=== PATIENT | male | born 1955 | race Caucasian/White ===

== ENCOUNTER → 2016-08-19 | Outpatient (REF) | payer SELFPAY ==
[2016-08-19 17:45] LABS: ANION GAP 8 MEQ/L (8-16); BLOOD UREA NITROGEN 18 MG/DL (7-18); CALCIUM LEVEL 8.9 MG/DL (8.8-10.2); CARBON DIOXIDE LEVEL 26 MEQ/L (21-32); CHLORIDE LEVEL 106 MEQ/L (98-107); CREATININE FOR GFR 0.91 MG/DL (0.70-1.30); GLOMERULAR FILTRATION RATE > 60.0 (>49); GLUCOSE, FASTING 108 MG/DL (80-110); POTASSIUM SERUM 4.3 MEQ/L (3.5-5.1); SODIUM LEVEL 140 MEQ/L (136-145)
[2016-08-19 17:55] LABS: BASO % 0.4 % (0.0-1.0); EOS # 0.2 K/mm3 (0.0-0.50); EOS % 3.3 % (0.0-3.0); LARGE UNSTAINED CELL # 0.1 K/mm3 (0.0-0.4); LARGE UNSTAINED CELL % 1.8 % (0.0-4.0); LYMPH # 1.2 K/mm3 (1.5-4.5); LYMPH % 24.5 % (24.0-44.0); MEAN CORPUSCULAR HEMOGLOBIN 29.6 pg (27.0-33.0); MEAN CORPUSCULAR HGB CONC 34.6 g/dl (32.0-36.5); MEAN CORPUSCULAR VOLUME 85.7 fl (80.0-96.0); MONO # 0.4 K/mm3 (0.0-0.8); MONO % 7.5 % (0.0-5.0); NEUTROPHILS # 2.9 K/mm3 (1.8-7.7); NEUTROPHILS % 62.5 % (36.0-66.0); PLATELET COUNT, AUTOMATED 240 k/mm3 (150-450); RED CELL DISTRIBUTION WIDTH 12.1 % (11.5-14.5); WHITE BLOOD COUNT 4.7 K/mm3 (4.0-10.0)
== END ==
LOC: M LAB REF 16:14
PROVIDERS: ATTEND Physician Assistant
DX: J18.9 Pneumonia, unspecified organism (principal)

== ENCOUNTER → 2016-09-18 | Outpatient (REF) | payer OTHER | LOC: M SFHCLERA 08:36 | PROVIDERS: ATTEND Family Medicine | DX: Z13.1 Encounter for screening for diabetes mellitus (principal); Z13.220 Encounter for screening for lipoid disorders; Z53.9 Procedure and treatment not carried out, unspecified reason ==

== ENCOUNTER → 2016-09-19 | Outpatient (REF) | payer OTHER | LOC: M SFHCLERA 08:42 | PROVIDERS: ATTEND Family Medicine | DX: Z13.1 Encounter for screening for diabetes mellitus (principal); Z13.220 Encounter for screening for lipoid disorders ==

== ENCOUNTER → 2017-05-05 | Outpatient (REF) | payer OTHER | LOC: M SFHCLERA 08:25 | PROVIDERS: ATTEND Family Medicine | DX: R73.01 Impaired fasting glucose (principal) ==

== ENCOUNTER → 2018-07-09 | Outpatient (REF) | payer MEDICARE ==
[2018-07-09 12:40] LABS: BLOOD UREA NITROGEN 28 MG/DL (7-18); CALCIUM LEVEL 8.7 MG/DL (8.8-10.2); CARBON DIOXIDE LEVEL 26 MEQ/L (21-32); CHLORIDE LEVEL 105 MEQ/L (98-107); CHOLESTEROL LEVEL 124 MG/DL (<200); CHOLESTEROL RISK RATIO 4.133 (<5); CREATININE FOR GFR 1.11 MG/DL (0.70-1.30); GLOMERULAR FILTRATION RATE > 60.0 (>49); GLUCOSE, FASTING 93 MG/DL (70-100); HDL CHOLESTEROL 30 MG/DL (>40); LDL CHOLESTEROL 73 MG/DL (<100); NON-HDL-C 94 MG/DL; POTASSIUM SERUM 4.8 MEQ/L (3.5-5.1); SODIUM LEVEL 139 MEQ/L (136-145); TRIGLYCERIDES LEVEL 106 MG/DL (<150)
[2018-07-09 13:38] LABS: HEMOGLOBIN A1c 6.2 %
== END ==
LOC: M SFHCLERA 08:45
PROVIDERS: ATTEND Family Medicine
DX: R73.03 Prediabetes (principal); E78.5 Hyperlipidemia, unspecified

== ENCOUNTER → 2018-07-14 | Outpatient (CLI) | payer MEDICARE ==
--- NOTE | 2018-07-14 10:39 | REP ---
ULTRASOUND ABDOMINAL AORTA: Real-time sonographic evaluation of the abdominal aorta performed. There is mild aneurysmal dilatation of the distal abdominal aorta 3.2 cm in maximum AP dimension extending for a length of about 4 cm. More proximally the abdominal aorta is not significantly dilated with slight ectasia at the level of the renal arteries 2.9 cm in AP dimension. More proximally AP diameter is 2.5 cm. Common iliac arteries are not significantly dilated, right measuring 1.2 cm and left 1.1 cm in maximum AP dimension. There is atherosclerotic plaquing of the abdominal aorta. IMPRESSION: Slight aneurysmal dilatation of the distal abdominal aorta 3.2 cm in maximum AP dimension extending for a length of 4 cm. Electronically Signed by John Aguayo MD 07/14/2018 08:33 P
== END ==
LOC: M RAD 07:18
PROVIDERS: ATTEND Family Medicine
DX: I77.811 Abdominal aortic ectasia (principal); F17.200 Nicotine dependence, unspecified, uncomplicated

== ENCOUNTER → 2018-07-22 | Outpatient (CLI) | payer MEDICARE ==
--- NOTE | 2018-07-22 09:36 | REP ---
Low-dose lung screening chest CT: There are no comparison studies. The study is performed without IV contrast. The images are presented at lung windowing only. There are the following lung nodules: Image 39, anterior inferior right upper lobe, 4 mm. Half image 57, right middle lobe, 8 mm. Image 58, anterior segment of the left lower lobe, 7 mm. Image 84, deep inferolateral sulcus left lung, 11 mm. Impression: The largest lung nodule measures 11 mm. This is a category 4A lesion. The probability of malignancy is 5 - 15%. 3-month follow-up low-dose lung screening CT is recommended. Additionally, consideration might be given to a PET scan. Electronically Signed by John Caicedo MD 07/22/2018 09:27 A
== END ==
LOC: M RAD 07:50
PROVIDERS: ATTEND Family Medicine
DX: Z13.6 Encounter for screening for cardiovascular disorders (principal); F17.200 Nicotine dependence, unspecified, uncomplicated; R91.8 Other nonspecific abnormal finding of lung field

== ENCOUNTER → 2018-08-17 | Outpatient (CLI) | payer MEDICARE ==
--- NOTE | 2018-08-17 17:11 | REP ---
BILATERAL LOWER EXTREMITY DUPLEX DOPPLER ARTERIAL ULTRASOUND: Real-time ultrasound evaluation and duplex Doppler interrogation of bilateral lower extremity arterial system is performed. Mild scattered plaquing is seen bilaterally throughout the lower extremities. No definite significant stenosis is seen bilaterally. KISHORE on the right is 1.1 and left 0.8. Triphasic and biphasic wave forms are seen diffusely bilaterally. There is monophasic wave forms in the left profunda and distal anterior tibial artery. RIGHT LEFT Common femoral artery 91.7 cm/s 56.3 cm/s Profunda 105.7 cm/s 69.2 cm/s SFA 132 cm/s 72 cm/s Popliteal 60.9 cm/s 45.2 cm/s Proximal KETTY 34.8 cm/s 35.7 cm/s Tibioperoneal trunk 37.7 cm/s 37.0 cm/s Proximal PRINTING MACHINE OPERATOR 46.0 cm/s 25.3 cm/s Distal PRINTING MACHINE OPERATOR 61 cm/s 22.3 cm/s Distal KETTY 38.8 cm/s 19.4 cm/s IMPRESSION: Mild scattered plaquing and narrowing bilaterally. No definite significant stenosis identified with duplex Doppler evaluation. Electronically Signed by John Aguayo MD 08/18/2018 03:18 P
== END ==
LOC: M RAD 08:46
PROVIDERS: ATTEND Surgery Vascular Surgery
DX: I70.213 Atherosclerosis of native arteries of extremities with intermittent claudication, bilateral legs (principal)

== ENCOUNTER → 2018-10-29 | Outpatient (CLI) | payer MEDICARE ==
--- NOTE | 2018-10-29 11:18 | REP ---
LUMBAR SPINE SERIES: Five views. HISTORY: Bilateral low back pain with left-sided sciatica. No comparison study. FINDINGS: Lumbar vertebral body heights are preserved. Alignment is normal. There is no evidence of spondylolysis or spondylolisthesis. There is evidence of a infrarenal abdominal aortic aneurysm measuring 4.6 cm in AP dimension on lateral radiograph. There are degenerative disc changes at each level in the lumbar spine most pronounced at L4-5 and L2-3. There is osteoarthritic facet hypertrophy bilaterally at L5-S1, L4-5 and to some degree L3-4. Psoas margins are symmetric. Sacrum and SI joints are intact. IMPRESSION: Degenerative spondylosis changes with degenerative disc disease most pronounced at L4-5 and L2-3 . There is a distal abdominal aortic aneurysm. This measures 4.6 cm in AP dimension on the lateral radiograph. This measurement will include approximate 20% to 25% magnification. Electronically Signed by Garo Zhang MD 10/29/2018 03:30 P
== END ==
LOC: M LRY 09:19
PROVIDERS: ATTEND Family Medicine
DX: M47.896 Other spondylosis, lumbar region (principal); M54.42 Lumbago with sciatica, left side

== ENCOUNTER → 2018-11-10 | Outpatient (CLI) | payer MEDICARE ==
--- NOTE | 2018-11-10 09:10 | REP ---
Clinical: Follow-up pulmonary nodule. Comparison: 07/22/2018. Technique: Axial noncontrast images from the thoracic inlet to the upper abdomen with coronal and sagittal re-formations. Findings: 4 mm density in the anterior right upper lobe (image 41), 7 mm density in the right middle lobe (image 59), and 5 mm density inseparable from the left major fissure (image 57) remains stable. No new consolidation, significant nodule or mass lesion appreciated. No pleural effusion. No pneumothorax. Tracheobronchial tree is patent. Stable lymph nodes measure up to 11 mm in the precarinal space. Atherosclerotic changes to the thoracic aorta and coronary arteries noted without aortic aneurysm, dissection or cardiomegaly. No pericardial effusion. Musculoskeletal structures intact. Limited upper abdomen demonstrates atrophic calcified right adrenal gland and normal left adrenal gland. Impression: Stable pulmonary densities unchanged from 07/22/2018. 12-month follow-up examination may be warranted to confirm stability. Electronically Signed by Solo Butler MD 11/10/2018 09:02 A
== END ==
LOC: M RAD 08:08
PROVIDERS: ATTEND Family Medicine
DX: R91.8 Other nonspecific abnormal finding of lung field (principal)

== ENCOUNTER → 2019-02-25 | Outpatient (CLI) | payer MEDICARE ==
--- NOTE | 2019-02-25 11:02 | REP ---
Bilateral lower extremity arterial Doppler ultrasound: History: Claudication. Atherosclerosis. Findings: Ankle brachial indices are 0.7 on the right and 0.6 on the left. These are lower than those observed August 17, 2018. Mild plaquing is observed bilaterally. Monophasic arterial wave forms are seen throughout the left lower extremity. Question inflow stenosis on the left. Right lower extremity arterial Doppler velocity chart: CF A 103 cm/S Profunda 76 Proximal SFA 91 Mid SFA 73 Distal SFA 86 Popliteal 66 Proximal AT A 28 Tibioperoneal trunk 37 Proximal NURSE OBGYN 39 Distal NURSE OBGYN 75 Distal AT A 49 Left lower extremity arterial Doppler velocity chart: CF A 57 cm/S Profunda 41 Proximal SFA 48 Mid SFA 38 Distal SFA 51 Popliteal 35 Proximal AT A 10 Tibioperoneal trunk 17 Proximal NURSE OBGYN 19 Distal NURSE OBGYN 19 Distal AT A 10 Electronically Signed by Garo Zhang MD 02/25/2019 10:54 A
== END ==
LOC: M RAD 08:28
PROVIDERS: ATTEND Surgery Vascular Surgery
DX: I80.2 Phlebitis and thrombophlebitis of other and unspecified deep vessels of lower extremities (principal)

== ENCOUNTER → 2019-07-11 | Outpatient (CLI) | payer MEDICARE ==
--- NOTE | 2019-07-11 15:07 | REP ---
CAROTID ULTRASOUND: Real-time ultrasound evaluation and duplex Doppler interrogation of the extracranial carotid vasculature is performed. There is moderate partially calcified plaquing and narrowing in both carotid bulbs extending into the internal carotid arteries. There is no evidence of elevated peak systolic velocity bilaterally. Luminal narrowing is less than 50%. There is no duplex Doppler sonographic evidence of hemodynamically significant stenosis of either internal carotid artery. There is normal direction of flow in the right vertebral artery. Left vertebral artery is not visualized. RIGHT LEFT Peak systolic velocity ICA 70.0 cm/s 68.6 cm/s End diastolic velocity ICA 33.5 cm/s 24.9 cm/s Peak systolic velocity CCA 64.7 cm/s 68.6 cm/s Peak systolic velocity ECA 166.1 cm/s 57.2 cm/s ICA/CCA ratio 1.21 1.0 IMPRESSION: Moderate bilateral plaquing and narrowing without evidence of hemodynamically significant stenosis. Luminal narrowing less than 50%. Electronically Signed by John Aguayo MD 07/11/2019 05:59 P
--- NOTE | 2019-07-11 15:28 | REP ---
DUPLEX DOPPLER ULTRASOUND BILATERAL LOWER EXTREMITY ARTERIAL SYSTEMS: Real-time ultrasound evaluation and duplex Doppler interrogation of the bilateral lower extremity arterial systems performed. KISHORE right 1.3 and left 0.85. There appears to be high grade stenosis of the left common iliac artery with a peak systolic velocity of 440 cm/s, external iliac artery on the left has a peak systolic velocity of 49 cm/s with monophasic waveform. Slow velocities and monophasic waveforms are seen throughout the remaining left lower extremity. Right lower extremity demonstrates normal flow velocities with triphasic and biphasic waveforms diffusely. There is no evidence of hemodynamically significant stenosis of the right lower extremity arterial system. Right common iliac and external iliac arteries also demonstrate normal flow velocities. Moderate plaquing is seen at the right common femoral artery with more mild degree of plaquing distally. PEAK SYSTOLIC VELOCITY RIGHT LEFT Common femoral artery 132.0 cm/s 60.0 cm/s Profunda 73.0 56.0 SFA 115.0 58.0 Popliteal 50.0 34.0 Proximal anterior tibial artery 29.0 13.0 Tibioperoneal trunk 46.0 24.0 Proximal posterior tibial artery 60.0 17.0 Distal posterior tibial artery 66.0 18.0 Distal anterior tibial artery 34.0 14.0 IMPRESSION: Severe stenosis left common iliac artery. In the more distal left lower extremity arterial system there are diffusely monophasic waveforms with slow flow velocities. Right lower extremity demonstrates moderate plaquing of the right common femoral artery. There is no significant stenosis in the right lower extremity arterial system. Electronically Signed by John Aguayo MD 07/11/2019 05:59 P
== END ==
LOC: M RAD 12:36
PROVIDERS: ATTEND Physician Assistant
DX: I65.21 Occlusion and stenosis of right carotid artery (principal); I70.213 Atherosclerosis of native arteries of extremities with intermittent claudication, bilateral legs

== ENCOUNTER → 2019-07-18 | Outpatient (CLI) | payer MEDICARE ==
[2019-07-18 10:46] LABS: HEMATOCRIT 43.6 % (42.0-52.0); HEMOGLOBIN 14.4 g/dl (13.5-17.5); MEAN CORPUSCULAR HEMOGLOBIN 29.8 pg (27.0-33.0); MEAN CORPUSCULAR VOLUME 90.1 fl (80.0-96.0); PLATELET COUNT, AUTOMATED 263 10^3/uL (150-450); RED BLOOD COUNT 4.84 10^6/uL (4.30-6.10); WHITE BLOOD COUNT 8.7 10^3/uL (4.0-10.0)
[2019-07-18 11:07] LABS: CREATININE FOR GFR 1.31 MG/DL (0.70-1.30); GLOMERULAR FILTRATION RATE 58.3 (>49); POTASSIUM SERUM 4.9 MEQ/L (3.5-5.1)
== END ==
LOC: M LAB 09:50
PROVIDERS: ATTEND Physician Assistant
DX: Z01.818 Encounter for other preprocedural examination (principal)

== ENCOUNTER → 2019-07-29 | Outpatient (CLI) | payer MEDICARE ==
--- NOTE | 2019-07-29 08:44 | REP ---
ABDOMINAL AORTIC SONOGRAPHY: HISTORY: Follow up abdominal aortic aneurysm. Comparison aortic sonography July 14, 2018 showed a distal aortic aneurysm measuring 3.2 cm AP by 4.0 cm right to left. FINDINGS: On today's sonography abdominal aortic dimensions are 2.5 x 3.2 cm AP by transverse respectively at the diaphragmatic hiatus. At the level of the main renal arteries these dimensions are 2.7 x 2.6 cm. The distal aorta at the level of the aneurysm measures 3.7 x 3.8 cm and is felt to be essentially unchanged. Right and left common iliac arteries are normal measuring 1.2 and 0.9 cm in AP dimension respectively. The aneurysm is approximately 3.8 cm in length. It appears to arise over 5 cm distal to the main renal arteries. No periaortic fluid or mass. IMPRESSION: 3.7 x 3.8 cm infrarenal abdominal aortic aneurysm. Essentially unchanged from the prior study. Electronically Signed by Garo Zhang MD 07/29/2019 08:49 A
== END ==
LOC: M RAD 07:31
PROVIDERS: ATTEND Family Medicine
DX: I71.4 Abdominal aortic aneurysm, without rupture (principal)

== ENCOUNTER → 2019-08-09 | Outpatient (CLI) | payer MEDICARE ==
[~2019-08-09] MED LIST: ACET-683 PO; ASPI81TA26 PO; CITA20TA6 PO; CLOP75TA2 PO; HEPARIN 1,000 UNITS/ML 10ML VIAL (FOR RADIOLOGY& DIALYSIS ONLY)(J1644-10) As Ordered ONE; ISOVUE-300 61% 50ML VIAL (Q9967) As Ordered ONE; LIDOCAINE 1% MDV 20ML VIAL As Ordered ONE; MIDAZOLAM INJ 2 MG/2 ML VIAL (J2250) As Ordered ONE; SIMV20TA22 PO; TIZA4TAB4 PO; TRAZ-252 PO; fentaNYL 100 MCG/2 ML INJECTION (J3010) As Ordered ONE
--- NOTE | 2019-08-09 14:52 | ROOPDOC ---
[facility] Report Of Operation Report of Operation Error. YUAN VIDES MD Aug 09, 2019 14:52
--- NOTE | 2019-08-09 15:11 | ROOPDOC ---
[facility] Report Of Operation Report of Operation DATE OF PROCEDURE: 08/09/19 PREPROCEDURE DIAGNOSES: Atherosclerosis of the [place] vessels with lifestyle limiting claudication and severe pain left lower extremity POSTPROCEDURE DIAGNOSES: Same PROCEDURE: 1. Ultrasound-guided access bilateral common femoral arteries 2. Aortoiliofemoral arteriogram and selection of left common femoral artery and left lower extremity runoff 3. Predilation of common iliac arteries was 6 x 100 [place] balloons 4. Stenting right common iliac artery with 8 x 37 express balloon expandable stent, and extension into external iliac artery with 8 x 57 express balloon 5. Extending left common iliac artery with 8 x 57 express balloon expandable stent, and extension into external iliac artery with 7 x 57 express balloon postdilated with 8 mm balloon 6. Completion arteriograms 7. Mynx closure bilateral common femoral arteries SURGEON: Yuan Kimball MD ANESTHESIA: Local anesthesia 18 mL lidocaine. Moderate intravenous conscious sedation was supervised by Dr. Kimball. The patient was independently monitored by registered nurse assigned to the Department of radiology using automated blood pressure, EKG, and pulse oximetry. The detailed sedation record is permanently stored in the hospital information system. The following is a brief sedation record: Start time 13:45, stop time 14:40, heparin 5000 units IV, fentanyl 75 g IV, Versed 1.5 mg IV. INDICATION FOR PROCEDURE: This is a very pleasant 64-year-old gentleman with worsening lifestyle limiting claudication and pain and is progressing to rest pain in the left lower extremity. Risks benefits and alternatives to an arteriogram potential intervention were explained to the patient and he is agreeable to proceed. Informed consent was obtained. INTERPRETATION: 1. There is a small aneurysmal dilation of the distal aorta, heavily calcified. The bilateral common iliac arteries are extremely calcified, and stenotic diffusely. The hypogastric arteries are patent, but there is also stenosis in the external iliac arteries. On the left, the external iliac artery also has a dense plaque that is somewhat lifted proximally allowing contrast to track behind it. The distal external iliac arteries are patent and laid off into patent common femoral arteries and profundus. The left common femoral artery has runoffs are widely patent SFA that is mildly ectatic and calcified but otherwise no flow limitations are noted. The popliteal artery is also widely patent, and there is 3 vessel runoff to the foot. The distal tibials are calcified and a bit diminutive, especially anterior tibial artery, but they are patent. The best runoff is through the posterior tibial artery which supplies the main blood flow to the foot. 2. After post dilation of the iliac arteries, no extravasation was noted. 3. After balloon-expandable stents were placed in the common iliac extending through the external iliac arteries bilaterally, we preserved the up and over option for future intervention at the aortic bifurcation, but we do have widely patent flow through the common iliac arteries and external iliac arteries bilaterally with preserved flow through the hypogastric arteries. No extravasation or embolization or dissection are noted. REPORT OF OPERATION: The patient was brought to the angiographic suite in stable condition and placed supine on the fluoroscopic table. His bilateral groins were prepped and draped in a sterile fashion. A timeout was performed. Sedation was administered without complication. Local anesthesia was administered to skin and subcutaneous tissue over the right common femoral artery and a microneedle was used to access the artery under ultrasound guidance. A wire was passed through this access under fluoroscopic guidance the needle was removed and a 4 Micronesian micro-sheath was placed and flushed with saline. A Glidewire and on the flushed catheter were advanced in the distal aorta under fluoroscopic guidance in aortoiliofemoral arteriograms were performed. Please see interpretation above. It was challenging to get up and over the bifurcation due to heavy calcified plaque in both common iliac arteries, we were eventually able to navigate the Glidewire and catheter into the left common femoral artery and a left lower extremity arteriogram with runoff was performed. Please see interpretation above. Next we gained access in the left common femoral artery in the same fashion as we did on the right. A Glidewire was advanced aorta under fluoroscopic guidance. Both sheath was exchanged for 7 Micronesian sheath and flushed with saline. We then 6 x 100 [place] balloon to cross the common iliac arteries into the aorta and a three-minute inflation was performed to predilate the arteries for an expandable stent placement. Following this there was no extrava sation noted. We then advanced an 8 x 37 express stent on the right and an 8 x 57 express stent on the left and these were deployed simultaneously at the origin to the common iliac arteries but not up into the aorta in order that we might preserve her up and over access for future interventions. We then extended the stent on the right with an 8 x 57 express stent into the external iliac artery with a 1 cm overlap at the original stent. Following this, there is widely patent inflow through the right iliac system without dissection embolization for extravasation. On the left we extended into the external iliac with a 7 x 57 express stent and postdilated this with an 8 x 57 balloon. Following this there was widely patent flow through the left iliac system with no dissection embolization her extravasation noted. We then deployed Mynx closure devices when it is time in each groin with good hemostasis. Pressure was held and sterile dressings were applied. The patient was taken to recovery in stable condition. He tolerated the procedure and the sedation well. ESTIMATED BLOOD LOSS: Approximately 5 mL. COMPLICATIONS: None. PLAN: It is okay for the patient to resume his home diet medications. We will start him on a prescription of Plavix which she should start tomorrow. He should continue to take his aspirin as well. He will need to be on Plavix for 60 days postop placement. He should take it easy over the next 48 hours and no strenuous exercise. We'll see him back in clinic in a week to check his groins and his per fusion. The patient was extensively counseled about smoking cessation and how important this is for limb preservation long-term. We appreciate the opportunity to participate in the care of this patient. YUAN KIMBALL MD Aug 09, 2019 15:11
[2019-08-09 17:55] VITALS: BP 171/88
== END ==
LOC: M IRPRO 09:33
PROVIDERS: ATTEND Surgery Vascular Surgery
DX: I70.213 Atherosclerosis of native arteries of extremities with intermittent claudication, bilateral legs (principal); I70.222 Atherosclerosis of native arteries of extremities with rest pain, left leg
CPT/HCPCS: 37221; 37223; 75710; 99152; 99153; C1760; C1769; C1876; C1887; C1894; J1644; J2250; J3010; Q9967

== ENCOUNTER → 2019-08-24 | Outpatient (REF) | payer MEDICARE ==
[~2019-08-24] MED LIST changes: -HEPARIN 1,000 UNITS/ML 10ML VIAL (FOR RADIOLOGY& DIALYSIS ONLY)(J1644-10) As Ordered ONE; -ISOVUE-300 61% 50ML VIAL (Q9967) As Ordered ONE; -LIDOCAINE 1% MDV 20ML VIAL As Ordered ONE; -MIDAZOLAM INJ 2 MG/2 ML VIAL (J2250) As Ordered ONE; -fentaNYL 100 MCG/2 ML INJECTION (J3010) As Ordered ONE
[2019-08-24 11:45] LABS: CHOLESTEROL RISK RATIO 3.666 (<5)
[2019-08-24 12:01] LABS: HEMOGLOBIN A1c 6.2 %
== END ==
LOC: M SFHCLERA 08:27
PROVIDERS: ATTEND Family Medicine
DX: Z13.1 Encounter for screening for diabetes mellitus (principal); E78.5 Hyperlipidemia, unspecified; R73.09 Other abnormal glucose

== ENCOUNTER → 2019-09-12 | Outpatient (CLI) | payer MEDICARE ==
--- NOTE | 2019-09-12 10:53 | REP ---
BILATERAL LOWER EXTREMITY DUPLEX DOPPLER ARTERIAL ULTRASOUND: Real-time ultrasound evaluation and duplex Doppler interrogation of bilateral lower extremity arterial systems is performed. KISHORE right is 1.1 and left 1.0. Since the prior study of 07/11/2019, the patient has had placement of iliac stents. In the left lower extremity there are diffuse triphasic and biphasic waveforms, previously waveforms were monophasic. Improved flow velocities are seen bilaterally. Right lower extremity demonstrates triphasic and biphasic waveforms. Normal flow velocities and waveforms are seen in the bilateral iliac arteries. Peak systolic velocity abdominal aorta is 74.6 cm/s. Right Peak Left Peak Systolic Velocity Systolic velocity Common iliac artery 148.0 cm/s 91.3 cm/s External iliac artery 133.0 cm/s 120.9 cm/s Common femoral artery 144.1 cm/s 132.0 cm/s Profunda 130.4 cm/s 97.3 cm/s Proximal SFA 146.2 cm/s 125.2 cm/s Mid SFA 82.3 cm/s 75.5 cm/s Distal SFA 101.9 cm/s 95.8 cm/s Popliteal 71.7 cm/s 67.8 cm/s Proximal KETTY 47.5 cm/s 46.8 cm/s Tibioperoneal trunk 41.4 cm/s 51.1 cm/s Proximal CONCESSIONIST 52.4 cm/s 48.2 cm/s Distal CONCESSIONIST 66.9 cm/s 69.4 cm/s Distal KETTY 55.3 cm/s 60.6 cm/s Electronically Signed by John Aguayo MD 09/12/2019 11:57 A
== END ==
LOC: M RAD 07:34
PROVIDERS: ATTEND Physician Assistant
DX: I70.203 Unspecified atherosclerosis of native arteries of extremities, bilateral legs (principal)

== ENCOUNTER → 2020-02-03 | Outpatient (CLI) | payer MEDICARE ==
--- NOTE | 2020-02-09 09:08 | REP ---
CAROTID ULTRASOUND COMPARISON: 07/11/2019. TECHNIQUE: Real-time sonographic evaluation and duplex Doppler interrogation of the extracranial carotid vasculature is performed. FINDINGS: There is again moderate partially calcified plaquing in the carotid bulbs and internal carotid arteries. Normal flow velocities are seen bilaterally with no duplex Doppler sonographic evidence of hemodynamically significant stenosis of either internal carotid artery. There is normal direction of flow in the right vertebral artery. The left vertebral artery is not visualized once again. PEAK FLOW VELOCITY ANALYSIS RIGHT LEFT ICA PSV 61.9 cm/s 71.7 cm/s ICA EDV 24.1 cm/s 27.1 cm/s CCA PSV 61.1 cm/s 64.0 cm/s ECA PSV 208 cm/s 71 cm/s ICA/CCA RATIO 1.0 1.1 IMPRESSION: No change since prior study. Moderate plaquing bilateral carotid bulbs and internal carotid arteries with no evidence of hemodynamically significant stenosis. MTDD
== END ==
LOC: M RAD 09:26
PROVIDERS: ATTEND Physician Assistant
DX: I65.23 Occlusion and stenosis of bilateral carotid arteries (principal)

== ENCOUNTER → 2020-02-28 | Outpatient (CLI) | payer MEDICARE ==
--- NOTE | 2020-02-28 16:20 | REP ---
INDICATION: MULTI PULMONARY NODULES COMPARISON: 11/10/2018 TECHNIQUE: Axial noncontrast images from the thoracic inlet to the upper abdomen with coronal and sagittal reformations. This CT examination was performed using the following dose reduction techniques: Automated exposure control, adjustment of mA and/or kv according to the patient's size, and use of iterative reconstruction technique. FINDINGS: Lung nguyễn demonstrate early emphysematous changes and few stable calcified and noncalcified pulmonary nodules measuring up to approximately 5 mm including a right middle lobe peripheral nodule which previously measured roughly 7 mm and on current examination measures 5 mm (discrepancy may be secondary to technique). No acute consolidation, new suspicious nodule or mass lesion appreciated. No effusion. No pneumothorax. Tracheobronchial tree is patent. No significant adenopathy noted. Further evaluation of the mediastinum demonstrates stable atherosclerotic changes to the thoracic aorta and coronary arteries. No cardiomegaly or pericardial effusion. Thyroid gland is normal. Surrounding musculoskeletal structures are intact and without acute osseous abnormality. IMPRESSION: 1. Early emphysematous changes. 2. Few scattered stable nodules up to 5 mm unchanged compared to 2019. 3. No acute mediastinal or pleuroparenchymal process appreciated. <Electronically signed by Solo Butler > 02/28/20 [id number]
== END ==
LOC: M RAD 15:03
PROVIDERS: ATTEND Family Medicine
DX: R91.1 Solitary pulmonary nodule (principal)

== ENCOUNTER → 2020-02-29 | Outpatient (CLI) | payer MEDICARE ==
--- NOTE | 2020-02-29 11:34 | PFTRPT ---
Height: 67.00 Inches Weight: 180.00 Lbs BSA: 1.93 Diagnosis: J44.9 DATE: 02/29/2020 ORDERING PHYSICIAN: Dr. Radha Herndon Pre and post bronchodilator studies have excellent technical quality. Forced vital capacity is reduced. FEV1 is out of proportion, obstructive index is therefore reduced. Expiratory limit of the flow-volume loop does suggest flow rate limitation. Favorable bronchodilator response is identified. Total lung capacity is elevation. Residual volume is consistent with air trapping. Diffusing capacity is significantly reduced and is borderline for correcting for alveolar volume. No hemoglobin available for correction. Airway resistance mildly elevated with concomitant decreased airway conductance. IMPRESSION: At least mild obstructive ventilatory impairment with concomitant underlying air trapping. Mild diffusing capacity impairment. Please correlate clinically. MTDD
== END ==
LOC: M CARPUL 10:30
PROVIDERS: ATTEND Family Medicine
DX: J44.9 Chronic obstructive pulmonary disease, unspecified (principal)

== ENCOUNTER → 2020-03-15 | Outpatient (CLI) | payer MEDICARE ==
[2020-03-15 19:54] LABS: APPEARANCE, URINE CLEAR (CLEAR); BACTERIA, URINE AUTO NEGATIVE (NEGATIVE); BILIRUBIN, URINE AUTO NEGATIVE (NEGATIVE); BLOOD, URINE BLOOD NEGATIVE (NEGATIVE); COLOR, URINE YELLOW (YELLOW); GLUCOSE, URINE (UA) AUTO NEGATIVE (NEGATIVE); KETONE, URINE AUTO NEGATIVE (NEGATIVE); LEUKOCYTE ESTERASE, URINE AUTO NEGATIVE (NEGATIVE); MUCUS, URINE SMALL (NEGATIVE); NITRITE, URINE AUTO NEGATIVE (NEGATIVE); PROTEIN, URINE AUTO NEGATIVE (NEGATIVE); RBC, URINE AUTO 0 /HPF (0-3); SPECIFIC GRAVITY URINE AUTO 1.019 (1.002-1.035); SQUAMOUS EPITHELIAL CELL UR AU 0 /HPF (0-6); UROBILINOGEN, URINE AUTO 0.2 mg/dL (0.0-2.0); WBC, URINE AUTO 0 /HPF (0-3)
[2020-03-15 20:22] LABS: ALBUMIN 3.8 GM/DL (3.2-5.2); BILIRUBIN,TOTAL 0.2 MG/DL (0.2-1.0); CALCIUM LEVEL 8.7 MG/DL (8.8-10.2); CREATININE FOR GFR 1.54 MG/DL (0.70-1.30); FREE T4 1.11 NG/DL (0.76-1.46); GLOMERULAR FILTRATION RATE 48.4 (>49); POTASSIUM SERUM 4.4 MEQ/L (3.5-5.1); THYROID STIMULATING HORMONE 1.17 uIU/ML (0.358-3.740); TOTAL PROTEIN 6.4 GM/DL (6.4-8.2)
== END ==
LOC: M WUC 13:44
PROVIDERS: ATTEND Family Medicine
DX: I10 Essential (primary) hypertension (principal)

== ENCOUNTER → 2020-04-03 | Outpatient (CLI) | payer MEDICARE ==
--- NOTE | 2020-04-03 20:15 | REP ---
INDICATION: CLAUDICATION COMPARISON: 09/12/2019. TECHNIQUE: Real time aguayo scale and Duplex Doppler evaluation of the bilateral lower extremity arterial vasculature using linear high frequency transducer. FINDINGS: Aguayo scale and duplex doppler images demonstrate mild scattered plaquing diffusely bilaterally, without evidence of focal stenosis or evidence of arterial occlusion. Bilateral common iliac artery stents are patent. Diffuse triphasic and biphasic waveforms are seen bilaterally. KISHORE right 1.0 and left 0.98. Peak systolic velocities (cm/sec) Common iliac arteries: Right 119; left 146 External iliac arteries: Right 115; left 98 Common femoral artery: Right 114; Left 103 Profunda femoris: Right 116; Left 84 SFA (proximal): Right 122; Left 149 SFA (mid): Right 84; Left 83 SFA (distal): Right 71; Left 78 Popliteal artery: Right 82; Left 74 KETTY (prox.): Right 56; Left 48 Tibioperoneal trunk: Right 47; Left 48 BUSINESS DEVELOPMENT DIRECTOR (prox.): Right 51; Left 47 BUSINESS DEVELOPMENT DIRECTOR (distal): Right 90; Left 61 KETTY (distal): Right 75; Left 56 IMPRESSION: Mild scattered plaquing bilaterally but no evidence of focal occlusion or stenosis. Patent common iliac artery stents. <Electronically signed by John Aguayo > 04/03/202010
== END ==
LOC: M RAD 13:43
PROVIDERS: ATTEND Physician Assistant
DX: I70.203 Unspecified atherosclerosis of native arteries of extremities, bilateral legs (principal); Z95.828 Presence of other vascular implants and grafts

== ENCOUNTER → 2020-04-26 | Outpatient (CLI) | payer MEDICARE ==
--- NOTE | 2020-04-26 14:50 | REP ---
INDICATION: MEDIAL KNEE PAIN COMPARISON: None. TECHNIQUE: AP and lateral views left knee. FINDINGS: There is no evidence of acute fracture, dislocation, or intrinsic bone disease.I do not see significant arthritic change. There does appear to be a small joint effusion. There are mild vascular calcifications posteriorly. There is a tiny spur of the superior pole of the patella. IMPRESSION: No fracture or dislocation. Tiny spur superior pole of patella. Small joint effusion. <Electronically signed by John Aguayo > 04/26/20 [id number]
== END ==
LOC: M WUC 13:26
PROVIDERS: ATTEND Dermatology
DX: M25.462 Effusion, left knee (principal); M25.562 Pain in left knee

== ENCOUNTER 2020-05-07 11:24 | Emergency (ER) | payer MEDICARE ==
[~2020-05-07] VITALS: Ht 170.2 cm; Wt 82.8 kg
[2020-05-07] MEDS ORDERED: ASPI-1 PO (11:50)
[2020-05-07] MEDS ORDERED: AMLO1TAB24 (11:50)
[2020-05-07] MEDS ORDERED: SPIR1CAP (11:50)
[2020-05-07 13:07] LABS: BASO # 0.1 10^3/uL (0.0-0.2); BASO % 0.7 % (0.0-1.0); EOS # 0.3 10^3/uL (0.0-0.5); EOS % 4.5 % (0.0-3.0); HEMATOCRIT 41.2 % (42.0-52.0); HEMOGLOBIN 13.6 g/dl (13.5-17.5); LYMPH # 1.2 10^3/uL (1.5-5.0); LYMPH % 16.8 % (24.0-44.0); MEAN CORPUSCULAR HEMOGLOBIN 29.8 pg (27.0-33.0); MEAN CORPUSCULAR VOLUME 90.4 fl (80.0-96.0); MONO # 0.6 10^3/uL (0.0-0.8); MONO % 7.7 % (0.0-5.0); NEUTROPHILS # 5.1 10^3/uL (1.5-8.5); NEUTROPHILS % 69.3 % (36.0-66.0); PLATELET COUNT, AUTOMATED 267 10^3/uL (150-450); RED BLOOD COUNT 4.56 10^6/uL (4.30-6.10); WHITE BLOOD COUNT 7.4 10^3/uL (4.0-10.0)
[2020-05-07] MEDS ORDERED: ISOVUE-370 76% 100ML VIAL As Ordered ONE (13:10)
[2020-05-07 13:17] LABS: INR 0.96
[2020-05-07 13:18] LABS: PARTIAL THROMBOPLASTIN TIME 27.7 SECONDS (24.2-38.5)
--- NOTE | 2020-05-07 13:35 | REP ---
INDICATION: LLE pain; PVD; r/o clot COMPARISON: None. TECHNIQUE: Aguayo scale and color Doppler evaluation left lower extremity using linear high frequency transducer. FINDINGS: Ultrasound examination of the left lower extremity deep venous structures from the common femoral vein to the popliteal vein demonstrates normal compressibility flow and wave patterns in response to respiration and augmentation. There is no evidence for deep venous thrombosis. Complex Hollins's cyst in the popliteal fossa measuring 5.0 x 1.7 x 4.1 cm IMPRESSION: No evidence for deep venous thrombosis. Complex Hollins's cyst in the popliteal fossa. <Electronically signed by Solo Butler > 05/07/20 [id number]
--- NOTE | 2020-05-07 14:11 | REP ---
INDICATION: hx of pelvic arterial stents; LLE pain/cool. COMPARISON: Comparison sonography April 03, 2020.. TECHNIQUE: 100 mL of intravenous Isovue 370 is administered. Helical scanning is acquired and 3 mm axial images re-formatted. Coronal and sagittal MPR, coronal MIP, complex axis luminal MPR, and surface rendered 3D images are generated. FINDINGS: Nonvascular CT findings include sigmoid colon diverticulosis without CT evidence of diverticulitis, 3 tiny subcentimeter cysts in the hip liver parenchyma. Vascular findings. There is 50% stenosis at the origin of the celiac axis. The SMA is widely patent. The proximal 1.5 cm of inferior mesenteric artery is occluded. There is an infrarenal abdominal aortic aneurysm measuring 4.2 cm in greatest anteroposterior dimension. There are patent bilateral common iliac artery stents as seen by sonography. There is atherosclerotic plaquing and high-grade stenosis of the main renal artery on the right, proximally 85-90%. There is an accessory renal artery on the right to the upper pole which does not show stenosis. On the left there is an nonstenotic upper pole small are artery arising from the aorta. There is atherosclerotic plaquing and moderate 60-75% narrowing of the left main renal artery is observed. The left iliac stent extends into the external iliac artery segment. The external iliac arteries are patent. Common femoral artery show vascular calcification and some plaquing but no high-grade stenosis. Profundal and superficial femoral arteries are patent proximally. On the right there is some atherosclerotic plaquing in the distal superficial femoral artery in the adductor canal but no high-grade stenosis is seen. Popliteal artery is a good caliber on the right. There is mild plaquing at the tibial-peroneal trunk and its bifurcation. Three vessel calf runoff is seen on the right to the distal calf and the posterior tibial is seen patent across the ankle. On the left, there is atherosclerotic plaquing the along the mid superficial femoral artery. In the adductor canal there is plaquing but no high-grade stenosis is seen. Popliteal artery is a good caliber. There is tibial-peroneal trunk bifurcation plaque calcification but no high-grade stenosis. Three vessel calf runoff is seen to the distal calf on the left. Anterior and posterior tibial arteries are patent across the ankle. 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 Scattered calcific atherosclerotic plaquing most pronounced in the superficial femoral arteries and tibial-peroneal trunk bifurcations. Patent bilateral common iliac artery stents. No high-grade stenosis or occlusion in the runoff arteries in either leg. <Electronically signed by Jules Zhang > 05/07/20 [id number]
[2020-05-07 14:25] VITALS: BP 162/89
--- NOTE | 2020-05-08 07:33 | ED PDOC ---
Post-Departure Follow-Up radiology rpeort faxed to galina Herndon Sarah MD May 08, 2020 07:33
== END 2020-05-07 15:02 | disposition home or self-care (01) ==
LOC: M ED 11:24
DX: M71.22 Synovial cyst of popliteal space [Baker], left knee (principal); I70.213 Atherosclerosis of native arteries of extremities with intermittent claudication, bilateral legs; E78.5 Hyperlipidemia, unspecified; I25.10 Atherosclerotic heart disease of native coronary artery without angina pectoris; I10 Essential (primary) hypertension; Z95.5 Presence of coronary angioplasty implant and graft
CPT/HCPCS: 36415; 75635; 80047; 85025; 85610; 85730; 93971; 99284; Q9967

== ENCOUNTER → 2020-05-31 | Outpatient (CLI) | payer MEDICARE ==
[~2020-05-31] MED LIST changes: +AMLO1TAB24; +ASPI-1 PO; +SPIR1CAP
--- NOTE | 2020-05-31 08:59 | REP ---
INDICATION: RENAL DOPPLER. COMPARISON: CT angiography May 07, 2020.. TECHNIQUE: Urinary tract sonography and renal artery Doppler study. FINDINGS: Scanning at the level of the urinary bladder shows no abnormality. Renal cortical echogenicity pattern is normal bilaterally and contours are smooth. There is no evidence of hydronephrosis, cyst, mass, or calculus in either kidney. The right kidney measures 9.4 x 6.0 x 5.5 cm. Left renal dimensions are 12.3 x 5.3 x 5.5 cm. The right kidney is somewhat smaller than the left by ultrasound. Renal Doppler data: Peak systolic flow velocity in the abdominal aorta at the level of main renal arteries is normal measured at 61 centimeters/second. An accessory and main right renal artery are observed. The accessory renal artery noted on CT study on the left could not be seen. Peak systolic flow velocity in the right main renal artery is 174 centimeters/second in the main and 127 centimeters/second in the accessory renal artery. Renal to aortic flow velocity ratios slightly elevated at 2.85 in the main renal artery on the right. On the left, peak systolic flow velocity is 165 centimeters/second. Renal to aortic flow velocity ratio 2.7 which is slightly elevated. Resistive indices are decreased and acceleration times are increase in the upper mid and lower pole of the right kidney. Intralobar artery Doppler data on the left is normal. IMPRESSION: Right kidney somewhat smaller than the left and there is evidence of mild to moderate right renal artery stenosis in the main renal artery. The accessory on the left was not be seen. Mildly elevated systolic velocity left main renal artery is noted as consistent with some degree of left renal artery stenosis. <Electronically signed by Jules Zhang > 05/31/20 [id number]
== END ==
LOC: M RAD 07:07
PROVIDERS: ATTEND Physician Assistant
DX: I70.1 Atherosclerosis of renal artery (principal)

== ENCOUNTER → 2021-03-28 | Outpatient (CLI) | payer MEDICARE ==
--- NOTE | 2021-03-28 09:35 | REP ---
INDICATION: ATHEROSCLEROSIS, EMILY COMPARISON: Renal ultrasound dated 05/31/2020 TECHNIQUE: Real time foley scale ultrasound examination using curved array transducer followed by color Doppler evaluation of the renal vasculature. FINDINGS: The kidneys demonstrate chronic age-related changes including cortical thinning and increased central sinus fat along with asymmetric atrophy to the right kidney. No hydronephrosis, nephrolithiasis, cystic or renal mass lesion identified. Bladder is unremarkable. Right kidney measures 8.9 x 5.8 x 5.5 cm. Left kidney measures 11.6 x 5.2 x 5.5 cm. Color Doppler evaluation demonstrates duplicated bilateral renal arteries. Peak aortic velocity: 82.7 centimeters/second RIGHT KIDNEY Peak renal arterial velocity: 262.1 centimeters/second Renal-aortic ratio: 3.2 Intrarenal resistive indices: 0.48-0.49 Intrarenal acceleration times: 0.092-0.011 LEFT KIDNEY Peak renal arterial velocity: 154 centimeters/second Renal-aortic ratio: 1.9 Intrarenal resistive indices: 0.56-0.66 Intrarenal acceleration times: 0.047-0.053 IMPRESSION: 1. Kidneys demonstrate chronic age-related changes and right renal atrophy due to underlying stenosis at the origin of the right main renal artery. <Electronically signed by Solo Butler > 03/28/21 0916
--- NOTE | 2021-03-28 09:41 | REP ---
INDICATION: ATHEROSLCEROSIS, OCCLUSION/STENOSIS COMPARISON: 02/03/2020 TECHNIQUE: Aguayo scale and color Doppler evaluation using linear high frequency transducer Findings: FINDINGS: Two-dimensional aguayo scale and color images demonstrate normal moderate atheromatous plaquing. Color Doppler interrogation demonstrates normal arterial wave patterns and velocities through the carotid bulbs and internal carotid arteries. There is stable focal elevation to the right external carotid artery. Suspected occlusion to the left vertebral artery again noted and unchanged.. ICA peak systolic velocity: Right 105.1 cm/s; Left 100.7 cm/s ICA diastolic velocity: Right 40.7 cm/s; Left 38.5 cm/s ECA peak systolic velocity: Right 218.1 cm/s; Left 122.9 cm/s CCA peak systolic velocity: Right 91.7 cm/s; Left 107.4 cm/s ICA/CCA ratio: Right 1.15 cm/s; Left 0.94 cm/s IMPRESSION: 1. No hemodynamically significant areas of narrowing or stenosis of the internal carotid arteries appreciated. 2. Left vertebral artery occlusion and increased velocity through the right external carotid artery are again noted and unchanged as compared with prior examination of 2019. <Electronically signed by Solo Butler > 03/28/21 0937
--- NOTE | 2021-03-28 10:00 | REP ---
INDICATION: ATHEROSLCEROSIS, OCCLUSION/STENOSIS COMPARISON: None. TECHNIQUE: Real time aguayo scale and color Doppler evaluation of the bilateral lower extremity arterial vasculature using linear high frequency transducer. FINDINGS: Aguayo scale and color images demonstrate moderate amounts of bilateral atheromatous plaquing with areas of minimal narrowing but no focal stenosis or occlusion identified. Doppler interrogation demonstrates normal triphasic and biphasic arterial wave forms and velocities bilaterally. Incidental Hollins's cyst in the left popliteal fossa measures 35 x 8 x 12 mm. Right KISHORE: 1.16 Left KISHORE: 1.14 Peak systolic velocities (cm/sec) Common femoral artery: Right 103; Left 110 Profunda femoris: Right 111; Left 149 SFA (proximal): Right 136; Left 141 SFA (mid): Right 112; Left 83 SFA (distal): Right 110; Left 114 Popliteal artery: Right 84/87; Left 82/49 Tibioperoneal trunk: Right 32; Left 45 FURNITURE RESTORER (prox.): Right 69; Left 52 FURNITURE RESTORER (distal): Right 94; Left 65 Peroneal (prox.): Right 40; Left 37 Peroneal (distal): Right 40; Left 30 KETTY (prox.): Right 42; Left 42 KETTY (distal): Right 54; Left 43 IMPRESSION: Atheromatous changes with areas of narrowing but no obvious focal occlusion or stenosis. <Electronically signed by Solo Butler > 03/28/21 0992
== END ==
LOC: M RAD 07:04
PROVIDERS: ATTEND Surgery Vascular Surgery
DX: I65.23 Occlusion and stenosis of bilateral carotid arteries (principal); I70.203 Unspecified atherosclerosis of native arteries of extremities, bilateral legs; I70.1 Atherosclerosis of renal artery; R09.89 Other specified symptoms and signs involving the circulatory and respiratory systems

== ENCOUNTER → 2021-04-15 | Outpatient (CLI) | payer MEDICARE ==
[2021-04-15 18:12] LABS: BLOOD UREA NITROGEN 21 MG/DL (7-18); CREATININE FOR GFR 1.23 MG/DL (0.70-1.30); GLOMERULAR FILTRATION RATE > 60.0 (>49)
== END ==
LOC: M LAB 16:40
PROVIDERS: ATTEND Surgery Vascular Surgery
DX: Z01.818 Encounter for other preprocedural examination (principal)

== ENCOUNTER → 2021-04-17 | Outpatient (CLI) | payer MEDICARE ==
--- NOTE | 2021-04-17 09:19 | REP ---
INDICATION: AAA COMPARISON: CT dated 05/07/2020 TECHNIQUE: Real time foley scale ultrasound examination using curved array transducer. FINDINGS: Infrarenal partially thrombosed abdominal aortic aneurysm is again identified measuring roughly 4.4 x 4.6 cm diameter and 4.5 cm in craniocaudal length. Based on most recent CT, the aneurysm begins approximately 3 cm below the renal arteries and terminates before the bifurcation to iliac arteries. Internal patent lumen measures 3.0 x 2.8 cm. No periaortic fluid is identified.. Proximal aorta: 2.9 x 2.7 cm Aorta at renal arteries: 2.5 x 2.5 cm Mid aorta: 4.2 x 4.6 cm Distal aorta: 4.4 x 4.5 cm Right common iliac artery: 0.8 x 1.2 cm Left common iliac artery: 0.9 x 1.1 cm IMPRESSION: Known infrarenal abdominal aortic aneurysm similar to CT dated 05/07/2020. <Electronically signed by Solo Butler > 04/17/21 0915
== END ==
LOC: M RAD 08:23
PROVIDERS: ATTEND Surgery Vascular Surgery
DX: I71.4 Abdominal aortic aneurysm, without rupture (principal)

== ENCOUNTER → 2021-05-15 | Outpatient (CLI) | payer MEDICARE ==
--- NOTE | 2021-05-15 09:50 | REP ---
INDICATION: SOLITARY PULMONARY NODULE. COMPARISON: 02/28/2020 the latest prior a standard noncontrast helical CT TECHNIQUE: Axial noncontrast images from the thoracic inlet to the upper abdomen using low-dose lung screening technique (LDCT). As per the protocol only lung window images were sent to the read station for interpretation. FINDINGS: There are multiple pulmonary nodules which are stable. There are no new abnormal nodules, masses, or opacities. IMPRESSION: Stable CT examination of the chest. Follow-up as per the revised Fleischner society criteria. <Electronically signed by Santy Ricardo > 05/15/21 0913
== END ==
LOC: M RAD 09:11
PROVIDERS: ATTEND Student in an Organized Health Care Education/Training Program
DX: R91.1 Solitary pulmonary nodule (principal); Z12.5 Encounter for screening for malignant neoplasm of prostate; F17.218 Nicotine dependence, cigarettes, with other nicotine-induced disorders

== ENCOUNTER → 2021-06-11 | Outpatient (POV) | payer MEDICARE ==
[~2021-06-11] VITALS: Ht 170.2 cm; Wt 84.0 kg
[~2021-06-11] MED LIST changes: +ASPI81CH33 PO; +HYDR12CA PO; +TIZA10TA PO; -TIZA4TAB4 PO
[2021-06-11 10:25] VITALS: BP 161/85
== END ==
LOC: M IRPOV 10:19
PROVIDERS: ATTEND Radiology Diagnostic Radiology
DX: I70.1 Atherosclerosis of renal artery (principal); N28.89 Other specified disorders of kidney and ureter; F17.210 Nicotine dependence, cigarettes, uncomplicated; I10 Essential (primary) hypertension; I73.9 Peripheral vascular disease, unspecified; J44.9 Chronic obstructive pulmonary disease, unspecified; Z79.82 Long term (current) use of aspirin; Z79.899 Other long term (current) drug therapy

== ENCOUNTER → 2021-06-20 | Outpatient (CLI) | payer MEDICARE ==
[~2021-06-20] MED LIST changes: +ISOVUE-300 61% 50ML VIAL As Ordered ONE; +LIDOCAINE 1% MDV 20ML VIAL As Ordered ONE; +MIDAZOLAM INJ 2MG/2ML VIAL (J2250 PER 1MG) As Ordered ONE; +NS 1,000 ML IV SCH; +diphenhydrAMINE 50MG/ML VIAL (J1200) As Ordered ONE; +fentaNYL 100 MCG/2 ML INJECTION As Ordered ONE
[2021-06-20 16:15] VITALS: BP 138/82
== END ==
LOC: M IRPRO 06:39
PROVIDERS: ATTEND Radiology Diagnostic Radiology
DX: I10 Essential (primary) hypertension (principal); N28.9 Disorder of kidney and ureter, unspecified; I70.1 Atherosclerosis of renal artery; I71.4 Abdominal aortic aneurysm, without rupture; Z95.828 Presence of other vascular implants and grafts
CPT/HCPCS: 36254; 75831; 99152; 99153; C1769; C1887; C1894; J1644; J2250; J3010; Q9967

== ENCOUNTER → 2021-07-09 | Outpatient (POV) | payer MEDICARE ==
[~2021-07-09] VITALS: Ht 170.2 cm; Wt 84.1 kg
[~2021-07-09] MED LIST changes: -ISOVUE-300 61% 50ML VIAL As Ordered ONE; -LIDOCAINE 1% MDV 20ML VIAL As Ordered ONE; -MIDAZOLAM INJ 2MG/2ML VIAL (J2250 PER 1MG) As Ordered ONE; -NS 1,000 ML IV SCH; -diphenhydrAMINE 50MG/ML VIAL (J1200) As Ordered ONE; -fentaNYL 100 MCG/2 ML INJECTION As Ordered ONE
[2021-07-09 08:45] VITALS: BP 156/88
== END ==
LOC: M IRPOV 08:32
PROVIDERS: ATTEND Radiology Diagnostic Radiology
DX: I70.1 Atherosclerosis of renal artery (principal); I71.4 Abdominal aortic aneurysm, without rupture

== ENCOUNTER → 2021-07-18 | Outpatient (CLI) | payer MEDICARE ==
[~2021-07-18] MED LIST changes: +ISOVUE-300 61% 50ML VIAL As Ordered ONE; +LIDOCAINE 1% MDV 20ML VIAL As Ordered ONE; +MIDAZOLAM INJ 2MG/2ML VIAL (J2250 PER 1MG) As Ordered ONE; +NITROGLYCERIN IN D5W 25MG/250ML (100MCG/ML) As Ordered ONE; +NS 1,000 ML IV SCH; +VERAPAMIL 5MG/2ML VIAL As Ordered ONE; +diphenhydrAMINE 50MG/ML VIAL (J1200) As Ordered ONE; +fentaNYL 100 MCG/2 ML INJECTION As Ordered ONE
[2021-07-18 14:30] VITALS: BP 143/82
== END ==
LOC: M IRPRO 06:23
PROVIDERS: ATTEND Radiology Diagnostic Radiology
DX: I70.1 Atherosclerosis of renal artery (principal); I71.4 Abdominal aortic aneurysm, without rupture
CPT/HCPCS: 36251; 99152; 99153; C1769; C1876; C1887; C1894; J1200; J1644; J2250; J3010; Q9967

== ENCOUNTER → 2021-08-06 | Outpatient (POV) | payer MEDICARE ==
[~2021-08-06] VITALS: Ht 170.2 cm; Wt 81.8 kg
[~2021-08-06] MED LIST changes: -ISOVUE-300 61% 50ML VIAL As Ordered ONE; -LIDOCAINE 1% MDV 20ML VIAL As Ordered ONE; -MIDAZOLAM INJ 2MG/2ML VIAL (J2250 PER 1MG) As Ordered ONE; -NITROGLYCERIN IN D5W 25MG/250ML (100MCG/ML) As Ordered ONE; -NS 1,000 ML IV SCH; -VERAPAMIL 5MG/2ML VIAL As Ordered ONE; -diphenhydrAMINE 50MG/ML VIAL (J1200) As Ordered ONE; -fentaNYL 100 MCG/2 ML INJECTION As Ordered ONE
[2021-08-06 11:10] VITALS: BP 140/82
== END ==
LOC: M IRPOV 11:02
PROVIDERS: ATTEND Radiology Diagnostic Radiology
DX: I71.4 Abdominal aortic aneurysm, without rupture (principal); I10 Essential (primary) hypertension

== ENCOUNTER → 2021-11-07 | Outpatient (CLI) | payer MEDICARE ==
[2021-11-07 13:25] LABS: BASO # 0.1 10^3/uL (0.0-0.2); BASO % 1.1 % (0.0-1.0); EOS # 0.3 10^3/uL (0.0-0.5); EOS % 3.9 % (0.0-3.0); HEMATOCRIT 42.5 % (42.0-52.0); HEMOGLOBIN 14.3 g/dl (13.5-17.5); LYMPH # 1.2 10^3/uL (1.5-5.0); LYMPH % 18.1 % (24.0-44.0); MEAN CORPUSCULAR HEMOGLOBIN 29.2 pg (27.0-33.0); MEAN CORPUSCULAR HGB CONC 33.6 g/dl (32.0-36.5); MEAN CORPUSCULAR VOLUME 86.9 fl (80.0-96.0); MONO # 0.7 10^3/uL (0.0-0.8); MONO % 10.4 % (2.0-8.0); NEUTROPHILS # 4.3 10^3/uL (1.5-8.5); NEUTROPHILS % 65.7 % (36.0-66.0); PLATELET COUNT, AUTOMATED 266 10^3/uL (150-450); RED BLOOD COUNT 4.89 10^6/uL (4.30-6.10); WHITE BLOOD COUNT 6.5 10^3/uL (4.0-10.0)
[2021-11-07 13:35] LABS: INR 0.93; PARTIAL THROMBOPLASTIN TIME 32.5 SECONDS (25.9-37.0); PROTHROMBIN TIME 12.9 SECONDS (12.7-14.5)
[2021-11-07 13:45] LABS: CALCIUM LEVEL 9.1 MG/DL (8.8-10.2); CREATININE FOR GFR 1.44 MG/DL (0.70-1.30); GLOMERULAR FILTRATION RATE 51.9 (>49); POTASSIUM SERUM 4.1 MEQ/L (3.5-5.1)
== END ==
LOC: M WUC 09:48
PROVIDERS: ATTEND Surgery Vascular Surgery
DX: Z01.818 Encounter for other preprocedural examination (principal); D69.8 Other specified hemorrhagic conditions

== ENCOUNTER → 2021-11-08 | Outpatient (CLI) | payer MEDICARE | LOC: M RAD 09:09 | PROVIDERS: ATTEND Student in an Organized Health Care Education/Training Program | DX: I71.4 Abdominal aortic aneurysm, without rupture (principal) ==

== ENCOUNTER → 2022-07-15 | Outpatient (CLI) | payer MEDICARE | LOC: M RAD 13:33 | PROVIDERS: ATTEND Student in an Organized Health Care Education/Training Program | DX: Z12.2 Encounter for screening for malignant neoplasm of respiratory organs (principal); F17.210 Nicotine dependence, cigarettes, uncomplicated; R91.8 Other nonspecific abnormal finding of lung field ==

== ENCOUNTER → 2023-06-04 | Outpatient (CLI) | payer MEDICARE | LOC: M WUC 10:49 | PROVIDERS: ATTEND Family Medicine | DX: R05.9 Cough, unspecified (principal) ==

== ENCOUNTER → 2023-06-05 | Outpatient (CLI) | payer MEDICARE | LOC: M WHC 07:36 | PROVIDERS: ATTEND Family Medicine | DX: I71.40 Abdominal aortic aneurysm, without rupture, unspecified (principal) ==

== ENCOUNTER → 2023-06-29 | Outpatient (CLI) | payer MEDICARE | LOC: M RAD 08:50 | PROVIDERS: ATTEND Physician Assistant | DX: I71.40 Abdominal aortic aneurysm, without rupture, unspecified (principal); I70.1 Atherosclerosis of renal artery ==

== ENCOUNTER → 2023-07-09 | Outpatient (CLI) | payer MEDICARE ==
[2023-07-10 13:45] LABS: CREATININE FOR GFR 1.39 MG/DL (0.70-1.30); GLOMERULAR FILTRATION RATE 53.8 (>42)
== END ==
LOC: M LAB 09:27
PROVIDERS: ATTEND Physician Assistant
DX: I71.43 Infrarenal abdominal aortic aneurysm, without rupture (principal)

== ENCOUNTER 2023-08-05 14:01 | Observation (INO) | payer MEDICARE ==
[~2023-08-05] VITALS: Ht 170.2 cm; Wt 84.2 kg
[~2023-08-05 14:01] MED LIST changes: -SPIR1CAP; +SPIR1CAP INH
[2023-08-05 15:11] LABS: BASO # 0.1 10^3/uL (0.0-0.2); BASO % 0.8 % (0.0-1.0); EOS # 0.7 10^3/uL (0.0-0.5); EOS % 9.6 % (0.0-3.0); HEMATOCRIT 39.3 % (42.0-52.0); HEMOGLOBIN 13.7 g/dl (13.5-17.5); LYMPH # 0.9 10^3/uL (1.5-5.0); MEAN CORPUSCULAR HEMOGLOBIN 30.2 pg (27.0-33.0); MEAN CORPUSCULAR HGB CONC 34.9 g/dl (32.0-36.5); MEAN CORPUSCULAR VOLUME 86.8 fl (80.0-96.0); MONO # 0.7 10^3/uL (0.0-0.8); NEUTROPHILS # 4.8 10^3/uL (1.5-8.5); NEUTROPHILS % 66.5 % (36.0-66.0); PLATELET COUNT, AUTOMATED 240 10^3/uL (150-450); RED BLOOD COUNT 4.53 10^6/uL (4.30-6.10); WHITE BLOOD COUNT 7.2 10^3/uL (4.0-10.0)
[2023-08-05] MEDS: FUROSEMIDE 40MG/4ML VIAL IV ONE (15:12)
[2023-08-05] MEDS: NITROGLYCERIN 0.4MG SUBL TABLET SL STA (15:12)
[2023-08-05] MEDS: ASPIRIN 81MG CHEW TABLET PO ONE (15:13)
[2023-08-05 15:25] LABS: INR 1.04; PARTIAL THROMBOPLASTIN TIME 28.2 SECONDS (24.8-34.2); PROTHROMBIN TIME 13.3 SECONDS (12.5-14.5)
[2023-08-05 15:44] LABS: CK-MB VALUE MASS 2.4 NG/ML (<3.6)
[2023-08-05 15:46] LABS: ALBUMIN 3.9 G/DL (3.2-5.2); BILIRUBIN,DIRECT 0.2 MG/DL (<0.4); BILIRUBIN,TOTAL 0.4 MG/DL (0.3-1.2); CREATININE FOR GFR 1.4 MG/DL (0.70-1.30); GLOMERULAR FILTRATION RATE 53.3 (>42); MB/CK RELATIVE INDEX 1.8 (< OR =4); TOTAL PROTEIN 6.5 G/DL (5.7-8.2)
[2023-08-05 15:47] LABS: THYROID STIMULATING HORMONE 2.985 uIU/ML (0.55-4.78)
[2023-08-05 15:48] LABS: FREE T4 1.25 NG/DL (0.89-1.76)
[2023-08-05] MEDS ORDERED: ISOVUE-370 76% 100ML VIAL As Ordered ONE (16:00)
[2023-08-05 17:29] LABS: CK-MB VALUE MASS 2.7 NG/ML (<3.6); MB/CK RELATIVE INDEX 1.88 (< OR =4)
[2023-08-05 17:56] LABS: RSV AMPLIFICATION NEGATIVE (NEGATIVE)
[2023-08-05 18:19] VITALS: BP 168/97
[2023-08-05] MEDS: NITROGLYCERIN 2% OINT 1 GM *U/D* PKT TOP ONE (18:19)
[2023-08-05] MEDS ORDERED: AMLO1TAB25 PO (19:51)
[2023-08-05] MEDS ORDERED: ALBU8.5H INH (19:51)
[2023-08-05] MEDS ORDERED: CLOP75TA2 PO (19:51)
[2023-08-05] MEDS: methylPREDNISolone 125MG 2ML VIAL IV ONE (20:07)
[2023-08-05] MEDS ORDERED: MOM 30ML SUSPENSION UDC PO PRN (20:15)
[2023-08-05] MEDS ORDERED: ALBUTEROL SULFATE 2.5MG/0.5ML INH NEB SOLN NEB PRN (20:15)
[2023-08-05] MEDS ORDERED: MAALOX 30 ML SUSP *UDC PO PRN (20:15)
[2023-08-05] MEDS ORDERED: ACETAMINOPHEN TAB 650MG DOSE (2X325MG) PO PRN (20:15)
[2023-08-05] MEDS: IPRATROPIUM 0.5MG/ALBUTEROL 2.5MG INH SOL UD 3ML (DUONEB) NEB ONE (20:33)
[2023-08-05] MEDS ORDERED: HOME MED LIST COMPLETE! XX SCH (20:50)
[2023-08-05] MEDS: DOCUSATE SODIUM 100MG CAPSULE PO SCH (21:00)
[2023-08-05 21:01] LABS: PROCALCITONIN 0.1 ng/ml
[2023-08-05] MEDS: cefTRIAXone SOD 1 GM in D5W MINI-BAG PLUS 50 ML IV SCH (21:09)
[2023-08-05 23:15] VITALS: BP 166/98; TEMP 98.8; O2SAT 94
[2023-08-05 23:46] VITALS: O2SAT 91
[2023-08-06] VITALS (8 sets, daily range): BP systolic 121–143; BP diastolic 80–85; TEMP 97.3–98.1; O2SAT 89–96
[2023-08-06] MEDS: IPRATROPIUM 0.5MG/ALBUTEROL 2.5MG INH SOL UD 3ML (DUONEB) NEB SCH (02:00)
[2023-08-06] MEDS: methylPREDNISolone 125MG 2ML VIAL IV SCH (04:30)
[2023-08-06 05:12] LABS: HEMATOCRIT 40.6 % (42.0-52.0); HEMOGLOBIN 14.1 g/dl (13.5-17.5); MEAN CORPUSCULAR HEMOGLOBIN 29.8 pg (27.0-33.0); MEAN CORPUSCULAR HGB CONC 34.7 g/dl (32.0-36.5); MEAN CORPUSCULAR VOLUME 85.8 fl (80.0-96.0); PLATELET COUNT, AUTOMATED 254 10^3/uL (150-450); RED BLOOD COUNT 4.73 10^6/uL (4.30-6.10)
[2023-08-06 05:43] LABS: BILIRUBIN,TOTAL 0.5 MG/DL (0.3-1.2); CALCIUM LEVEL 9.2 MG/DL (8.3-10.6); CREATININE FOR GFR 1.47 MG/DL (0.70-1.30); GLOMERULAR FILTRATION RATE 50.4 (>42); HDL CHOLESTEROL 31.5 MG/DL (>40); LDL CHOLESTEROL 80.9 MG/DL (<100); MAGNESIUM LEVEL 2.2 MG/DL (1.8-2.4); NON-HDL-C 94.5 MG/DL; POTASSIUM SERUM 4.1 MMOL/L (3.5-5.1); TOTAL PROTEIN 6.8 G/DL (5.7-8.2)
[2023-08-06] MEDS: BUDESONIDE 0.5 MG/2 ML INHALATION SUSPENSION NEB SCH (07:53)
[2023-08-06] MEDS ORDERED: SYMBICORT 160/4.5MCG INHALER 6GM INH SCH (08:00)
[2023-08-06] MEDS: FUROSEMIDE 10MG PER 1/2 TABLET PO SCH (08:08)
[2023-08-06] MEDS: PANTOPRAZOLE 40MG VIAL IV SCH (08:09)
[2023-08-06] MEDS: HEPARIN SOD (PORCINE) 5000UNITS/ML 1ML VIAL/SYRINGE SC SCH (08:10)
[2023-08-06] MEDS: DOXYCYCLINE HYCLATE 100MG TABLET PO SCH (08:12)
[2023-08-06] MEDS: CLOPIDOGREL 75 MG TAB PO SCH (08:12)
[2023-08-06] MEDS: CitaloPRAM (CeleXA) 20 MG TAB PO SCH (08:13)
[2023-08-06] MEDS: ASPIRIN 81MG CHEW TABLET PO SCH (08:14)
[2023-08-06] MEDS ORDERED: DOXY100T PO (14:46)
[2023-08-06] MEDS ORDERED: PRED10TA2 PO (14:46)
[2023-08-06] MEDS ORDERED: methylPREDNISolone 40MG 1ML VIAL IV SCH (18:00)
[2023-08-06] MEDS ORDERED: traZODone 50 MG TAB PO SCH (21:00)
== END 2023-08-06 16:20 | disposition home or self-care (01) ==
LOC: M ED 15:39 → INTOOBSV 19:57 → M ED INP 19:57 → ENRESERV 22:45 → M PCU 23:03
PROVIDERS: ADMIT Internal Medicine; ATTEND Internal Medicine
DX: J44.1 Chronic obstructive pulmonary disease with (acute) exacerbation (principal); R60.0 Localized edema; I89.0 Lymphedema, not elsewhere classified; Q27.1 Congenital renal artery stenosis; R73.03 Prediabetes; I12.9 Hypertensive chronic kidney disease with stage 1 through stage 4 chronic kidney disease, or unspecified chronic kidney disease; N18.30 Chronic kidney disease, stage 3 unspecified; E78.5 Hyperlipidemia, unspecified; F34.1 Dysthymic disorder; L40.9 Psoriasis, unspecified; I73.9 Peripheral vascular disease, unspecified; Z79.82 Long term (current) use of aspirin; Z79.52 Long term (current) use of systemic steroids; Z79.899 Other long term (current) drug therapy; Z87.891 Personal history of nicotine dependence; R10.13 Epigastric pain; I71.40 Abdominal aortic aneurysm, without rupture, unspecified
CPT/HCPCS: 36415; 71045; 71275; 74176; 80048; 80053; 80061; 80076; 82550; 82553; 83690; 83735; 83880; 84100; 84145; 84439; 84443; 84484; 85025; 85027; 85610; 85730; 87631; 87641; 93005; 93041; 93306; 94640; 94760; 96365; 96372; 96374; 96375; 96376; 99285; C9113; G0378; J0696; J1940; J2930; Q9967

== ENCOUNTER 2023-09-07 11:05 | Observation (INO) | payer MEDICARE ==
[~2023-09-07] VITALS: Ht 170.2 cm; Wt 81.4 kg
[~2023-09-07 11:05] MED LIST changes: +ALBU8.5H INH; +AMLO1TAB25 PO; +DOXY100T PO; +PRED10TA2 PO
[2023-09-07] MEDS ORDERED: TIOT18CA INH (11:22)
[2023-09-07] MEDS ORDERED: COMBAER6 INH (11:22)
[2023-09-07 12:13] LABS: ABG BASE EXCESS 1.2 (-2.0-2.0); ABG HCO3 25.1 MMOL/L (22.0-26.0); ABG O2 SATURATION 95.5 % (95.0-99.0); ABG PARTIAL PRESSURE CO2 37.5 mmHg (35.0-45.0); ABG PARTIAL PRESSURE O2 74.8 mmHg (75.0-100.0); ABG STANDARD HCO3 25.5 MMOL/L. (22.0-26.0); ABG TOTAL CO2 26.2 MMOL/L (23.0-31.0); ABG pH (ARTERIAL) 7.443 UNITS (7.350-7.450)
[2023-09-07 12:20] LABS: BASO # 0.1 10^3/uL (0.0-0.2); BASO % 1.1 % (0.0-1.0); EOS # 0.7 10^3/uL (0.0-0.5); EOS % 10.7 % (0.0-3.0); HEMATOCRIT 42.8 % (42.0-52.0); HEMOGLOBIN 14.6 g/dl (13.5-17.5); LYMPH % 14.9 % (24.0-44.0); MEAN CORPUSCULAR HEMOGLOBIN 29.9 pg (27.0-33.0); MEAN CORPUSCULAR HGB CONC 34.1 g/dl (32.0-36.5); MEAN CORPUSCULAR VOLUME 87.7 fl (80.0-96.0); MONO # 0.6 10^3/uL (0.0-0.8); MONO % 8.4 % (2.0-8.0); NEUTROPHILS # 4.2 10^3/uL (1.5-8.5); NEUTROPHILS % 63.4 % (36.0-66.0); PLATELET COUNT, AUTOMATED 309 10^3/uL (150-450); RED BLOOD COUNT 4.88 10^6/uL (4.30-6.10); WHITE BLOOD COUNT 6.6 10^3/uL (4.0-10.0)
[2023-09-07] MEDS: methylPREDNISolone 125MG 2ML VIAL IV ONE (12:29)
[2023-09-07] MEDS: IPRATROPIUM 0.5MG/ALBUTEROL 2.5MG INH SOL UD 3ML (DUONEB) NEB PRN (12:33)
[2023-09-07 12:40] LABS: CK-MB VALUE MASS 9.2 NG/ML (<3.6)
[2023-09-07 12:44] LABS: BILIRUBIN,DIRECT 0.2 MG/DL (<0.4); BILIRUBIN,TOTAL 0.3 MG/DL (0.3-1.2); CALCIUM LEVEL 9.1 MG/DL (8.3-10.6); CREATININE FOR GFR 1.47 MG/DL (0.70-1.30); GLOMERULAR FILTRATION RATE 50.4 (>42); MB/CK RELATIVE INDEX 3.28 (< OR =4); POTASSIUM SERUM 3.9 MMOL/L (3.5-5.1); TOTAL PROTEIN 6.9 G/DL (5.7-8.2)
[2023-09-07 12:45] LABS: THYROID STIMULATING HORMONE 0.853 uIU/ML (0.55-4.78); THYROXINE (T4) 11.3 UG/DL (4.5-10.9)
[2023-09-07 12:50] LABS: PROCALCITONIN 0.08 ng/ml
[2023-09-07] MEDS ORDERED: ISOVUE-370 76% 100ML VIAL As Ordered ONE (12:56)
[2023-09-07 13:56] LABS: CK-MB VALUE MASS 8.8 NG/ML (<3.6)
[2023-09-07 13:59] LABS: MB/CK RELATIVE INDEX 3.45 (< OR =4)
[2023-09-07] MEDS ORDERED: HOME MED LIST COMPLETE! XX SCH (14:50)
[2023-09-07] MEDS: ALBUTEROL SULFATE 2.5MG/0.5ML INH NEB SOLN NEB ONE (15:15)
[2023-09-07] MEDS ORDERED: ACETAMINOPHEN TAB 650MG DOSE (2X325MG) PO PRN (15:50)
[2023-09-07] MEDS: IPRATROPIUM 0.5MG/ALBUTEROL 2.5MG INH SOL UD 3ML (DUONEB) NEB SCH (15:56)
[2023-09-07] MEDS: methylPREDNISolone 40MG 1ML VIAL IV SCH (17:54)
[2023-09-07] MEDS: PANTOPRAZOLE 40MG TAB (PROTONIX) PO SCH (19:56)
[2023-09-07] MEDS: traZODone 50 MG TAB PO SCH (19:56)
[2023-09-07] MEDS: DOCUSATE SODIUM 100MG CAPSULE PO SCH (19:56)
[2023-09-07] MEDS: SYMBICORT 160/4.5MCG INHALER 6GM INH SCH (19:59)
[2023-09-07] MEDS ORDERED: FORMOTEROL FUMARATE 20 MCG/2 ML INHALATION SOLUTION (PERFOROMIST) INH SCH (20:00)
[2023-09-07 22:00] VITALS: BP 151/84; TEMP 98.2; O2SAT 88
[2023-09-07 22:15] VITALS: O2SAT 86
[2023-09-07 22:49] VITALS: O2SAT 92
[2023-09-08 06:13] VITALS: BP 131/83; TEMP 97.3; O2SAT 88
[2023-09-08 07:01] LABS: BASO % 0.2 % (0.0-1.0); HEMATOCRIT 40.4 % (42.0-52.0); HEMOGLOBIN 13.5 g/dl (13.5-17.5); LYMPH # 0.5 10^3/uL (1.5-5.0); LYMPH % 4.5 % (24.0-44.0); MEAN CORPUSCULAR HGB CONC 33.4 g/dl (32.0-36.5); MEAN CORPUSCULAR VOLUME 86.9 fl (80.0-96.0); MONO # 0.2 10^3/uL (0.0-0.8); MONO % 1.8 % (2.0-8.0); NEUTROPHILS # 10.6 10^3/uL (1.5-8.5); PLATELET COUNT, AUTOMATED 276 10^3/uL (150-450); RED BLOOD COUNT 4.65 10^6/uL (4.30-6.10); WHITE BLOOD COUNT 11.4 10^3/uL (4.0-10.0)
[2023-09-08 07:28] LABS: CALCIUM LEVEL 9.3 MG/DL (8.3-10.6); CREATININE FOR GFR 1.5 MG/DL (0.70-1.30); GLOMERULAR FILTRATION RATE 49.3 (>42); POTASSIUM SERUM 3.8 MMOL/L (3.5-5.1)
[2023-09-08 08:20] VITALS: O2SAT 90
[2023-09-08] MEDS: TIOTROPIUM INHALER/CAPSULE (SPIRIVA) INH SCH (08:21)
[2023-09-08] MEDS: SIMVASTATIN 20 MG TAB PO SCH (09:11)
[2023-09-08] MEDS: hydroCHLOROthiazide 12.5 MG CAPSULE PO SCH (09:11)
[2023-09-08] MEDS: CLOPIDOGREL 75 MG TAB PO SCH (09:12)
[2023-09-08] MEDS: ASPIRIN 81MG CHEW TABLET PO SCH (09:13)
[2023-09-08] MEDS: AZITHROMYCIN 250MG TABLET PO SCH (12:16)
[2023-09-08] MEDS: IPRATROPIUM 0.5MG/ALBUTEROL 2.5MG INH SOL UD 3ML (DUONEB) NEB SCH (13:33)
[2023-09-08 13:48] LABS: ABG BASE EXCESS -5.6 (-2.0-2.0); ABG HCO3 19.4 MMOL/L (22.0-26.0); ABG O2 SATURATION 63.7 % (95.0-99.0); ABG PARTIAL PRESSURE CO2 36.5 mmHg (35.0-45.0); ABG STANDARD HCO3 19.2 MMOL/L. (22.0-26.0); ABG TOTAL CO2 20.5 MMOL/L (23.0-31.0); ABG pH (ARTERIAL) 7.343 UNITS (7.350-7.450)
[2023-09-08 13:54] LABS: ABG PARTIAL PRESSURE O2 35.5 mmHg (75.0-100.0)
[2023-09-08] MEDS ORDERED: IPRATROPIUM 0.5MG/ALBUTEROL 2.5MG INH SOL UD 3ML (DUONEB) NEB PRN (14:00)
[2023-09-08] MEDS: BENZONATATE 100MG CAPSULE PO PRN (14:23)
[2023-09-08] MEDS: guaiFENesin 200 MG TAB PO PRN (14:23)
[2023-09-08 14:25] VITALS: BP 135/76; TEMP 97.9; O2SAT 91
[2023-09-08] MEDS: GLYCOPYRROLATE INJ 0.2 MG/ML 2 ML VIAL NEB SCH (20:00)
[2023-09-08] MEDS: FORMOTEROL FUMARATE 20 MCG/2 ML INHALATION SOLUTION (PERFOROMIST) INH SCH (20:00)
[2023-09-08 22:00] VITALS: BP 128/75; TEMP 97.9; O2SAT 90
[2023-09-09] VITALS (7 sets, daily range): BP systolic 129–141; BP diastolic 74–84; TEMP 97.7–98.4; O2SAT 89–93
[2023-09-09 07:53] LABS: BASO % 0.1 % (0.0-1.0); HEMATOCRIT 40.6 % (42.0-52.0); HEMOGLOBIN 13.6 g/dl (13.5-17.5); LYMPH # 0.7 10^3/uL (1.5-5.0); LYMPH % 3.5 % (24.0-44.0); MEAN CORPUSCULAR HEMOGLOBIN 29.6 pg (27.0-33.0); MEAN CORPUSCULAR HGB CONC 33.5 g/dl (32.0-36.5); MEAN CORPUSCULAR VOLUME 88.5 fl (80.0-96.0); MONO # 0.6 10^3/uL (0.0-0.8); MONO % 3.1 % (2.0-8.0); NEUTROPHILS # 17.3 10^3/uL (1.5-8.5); NEUTROPHILS % 92.1 % (36.0-66.0); PLATELET COUNT, AUTOMATED 333 10^3/uL (150-450); RED BLOOD COUNT 4.59 10^6/uL (4.30-6.10); WHITE BLOOD COUNT 18.8 10^3/uL (4.0-10.0)
[2023-09-09] MEDS: NICOTINE 21MG/24HR 1 EA TRANSDERMAL TD SCH (08:09)
[2023-09-09 08:21] LABS: CALCIUM LEVEL 9.3 MG/DL (8.3-10.6); CREATININE FOR GFR 1.5 MG/DL (0.70-1.30); GLOMERULAR FILTRATION RATE 49.3 (>42); POTASSIUM SERUM 4.1 MMOL/L (3.5-5.1)
[2023-09-09] MEDS: HEPARIN SOD (PORCINE) 5000UNITS/ML 1ML VIAL/SYRINGE SQ SCH (21:10)
[2023-09-10 06:06] VITALS: BP 134/76; TEMP 98.2; O2SAT 92
[2023-09-10 07:35] LABS: BASO % 0.2 % (0.0-1.0); HEMATOCRIT 38.6 % (42.0-52.0); HEMOGLOBIN 13.2 g/dl (13.5-17.5); LYMPH # 0.6 10^3/uL (1.5-5.0); LYMPH % 4.6 % (24.0-44.0); MEAN CORPUSCULAR HEMOGLOBIN 29.8 pg (27.0-33.0); MEAN CORPUSCULAR HGB CONC 34.2 g/dl (32.0-36.5); MEAN CORPUSCULAR VOLUME 87.1 fl (80.0-96.0); MONO # 0.4 10^3/uL (0.0-0.8); MONO % 3.1 % (2.0-8.0); NEUTROPHILS # 11.2 10^3/uL (1.5-8.5); NEUTROPHILS % 90.6 % (36.0-66.0); PLATELET COUNT, AUTOMATED 269 10^3/uL (150-450); RED BLOOD COUNT 4.43 10^6/uL (4.30-6.10); WHITE BLOOD COUNT 12.4 10^3/uL (4.0-10.0)
[2023-09-10 08:12] LABS: CALCIUM LEVEL 8.9 MG/DL (8.3-10.6); CREATININE FOR GFR 1.48 MG/DL (0.70-1.30); POTASSIUM SERUM 3.8 MMOL/L (3.5-5.1)
[2023-09-10] MEDS: CitaloPRAM (CeleXA) 20 MG TAB PO SCH (08:56)
[2023-09-10 08:57] VITALS: BP 128/72
[2023-09-10] MEDS ORDERED: PRED10TA2 PO (10:03)
[2023-09-10] MEDS ORDERED: SYMB16INH INH (10:03)
== END 2023-09-10 11:17 | disposition home health service (06) ==
LOC: M ED 11:05 → M ED INP 11:06 → ENRESERV 16:50 → M MSPAV 17:34
PROVIDERS: ADMIT Internal Medicine Nephrology; ATTEND Internal Medicine
DX: J44.1 Chronic obstructive pulmonary disease with (acute) exacerbation (principal); J96.01 Acute respiratory failure with hypoxia; R94.6 Abnormal results of thyroid function studies; I13.0 Hypertensive heart and chronic kidney disease with heart failure and stage 1 through stage 4 chronic kidney disease, or unspecified chronic kidney disease; I73.9 Peripheral vascular disease, unspecified; Z95.828 Presence of other vascular implants and grafts; I70.1 Atherosclerosis of renal artery; E87.4 Mixed disorder of acid-base balance; E78.5 Hyperlipidemia, unspecified; I50.32 Chronic diastolic (congestive) heart failure; F32.A Depression, unspecified; K21.9 Gastro-esophageal reflux disease without esophagitis; N18.30 Chronic kidney disease, stage 3 unspecified; K59.00 Constipation, unspecified; Z86.79 Personal history of other diseases of the circulatory system; R73.9 Hyperglycemia, unspecified; R91.8 Other nonspecific abnormal finding of lung field; I71.40 Abdominal aortic aneurysm, without rupture, unspecified; K76.89 Other specified diseases of liver; N26.1 Atrophy of kidney (terminal); Z79.899 Other long term (current) drug therapy; Z79.82 Long term (current) use of aspirin; Z79.51 Long term (current) use of inhaled steroids; Z79.02 Long term (current) use of antithrombotics/antiplatelets; F17.210 Nicotine dependence, cigarettes, uncomplicated; Z83.3 Family history of diabetes mellitus
CPT/HCPCS: 36415; 36600; 71045; 71275; 80047; 80048; 80076; 82550; 82553; 82803; 83605; 83880; 84145; 84436; 84443; 84484; 85025; 87040; 87486; 87581; 87633; 87798; 93005; 93041; 94640; 94760; 96372; 96374; 96376; 99285; G0378; J2919; J7606; Q9967

== ENCOUNTER 2023-10-15 12:28 | Emergency (ER) | payer MEDICARE ==
[~2023-10-15] VITALS: Ht 170.2 cm; Wt 78.5 kg
[~2023-10-15 12:28] MED LIST changes: +COMBAER6 INH; +SYMB16INH INH; +TIOT18CA INH
[2023-10-15 12:30] VITALS: TEMP 97.7
[2023-10-15] MEDS: methylPREDNISolone 125MG 2ML VIAL IM ONE (22:08)
[2023-10-15] MEDS: IPRATROPIUM 0.5MG/ALBUTEROL 2.5MG INH SOL UD 3ML (DUONEB) NEB PRN (22:16)
[2023-10-15 22:17] VITALS: O2SAT 92
[2023-10-15] MEDS ORDERED: PRED20TA PO (23:01)
[2023-10-15 23:06] VITALS: BP 137/71; O2SAT 93
== END 2023-10-15 23:06 | disposition home or self-care (01) ==
LOC: M ED 12:28
DX: J44.1 Chronic obstructive pulmonary disease with (acute) exacerbation (principal); E11.9 Type 2 diabetes mellitus without complications; I10 Essential (primary) hypertension; E78.5 Hyperlipidemia, unspecified; Z86.79 Personal history of other diseases of the circulatory system; Z87.891 Personal history of nicotine dependence; Z79.52 Long term (current) use of systemic steroids; Z79.82 Long term (current) use of aspirin; Z79.899 Other long term (current) drug therapy
CPT/HCPCS: 71046; 94640; 96372; 99284; J2919

== ENCOUNTER → 2023-12-17 | Outpatient (CLI) | payer MEDICARE ==
[~2023-12-17] MED LIST changes: +PRED20TA PO
== END ==
LOC: M RAD 09:27
PROVIDERS: ATTEND Physician Assistant
DX: I71.43 Infrarenal abdominal aortic aneurysm, without rupture (principal)

== ENCOUNTER → 2024-01-05 | Outpatient (CLI) | payer MEDICARE | LOC: M CARPUL 11:59 | PROVIDERS: ATTEND Family Medicine | DX: R06.02 Shortness of breath (principal); I35.0 Nonrheumatic aortic (valve) stenosis ==

== ENCOUNTER → 2024-02-16 | Outpatient (REF) | payer MEDICARE ==
[2024-02-16 18:45] LABS: FREE T4 1.22 NG/DL (0.89-1.76); THYROID STIMULATING HORMONE 1.399 uIU/ML (0.55-4.78)
== END ==
LOC: M LAB REF 17:36
PROVIDERS: ATTEND Internal Medicine Nephrology
DX: R53.82 Chronic fatigue, unspecified (principal)

== ENCOUNTER → 2024-03-09 | Outpatient (CLI) | payer MEDICARE ==
[2024-03-09 12:14] LABS: BASO # 0.1 10^3/uL (0.0-0.2); BASO % 1.2 % (0.0-1.0); EOS # 0.3 10^3/uL (0.0-0.5); EOS % 4.4 % (0.0-3.0); HEMATOCRIT 46.2 % (42.0-52.0); HEMOGLOBIN 15.3 g/dl (13.5-17.5); LYMPH % 13.1 % (24.0-44.0); MEAN CORPUSCULAR HGB CONC 33.1 g/dl (32.0-36.5); MEAN CORPUSCULAR VOLUME 87.5 fl (80.0-96.0); MONO # 0.6 10^3/uL (0.0-0.8); MONO % 7.7 % (2.0-8.0); NEUTROPHILS # 5.7 10^3/uL (1.5-8.5); NEUTROPHILS % 72.4 % (36.0-66.0); PLATELET COUNT, AUTOMATED 284 10^3/uL (150-450); RED BLOOD COUNT 5.28 10^6/uL (4.30-6.10); WHITE BLOOD COUNT 7.8 10^3/uL (4.0-10.0)
[2024-03-09 12:37] LABS: CALCIUM LEVEL 9.8 MG/DL (8.3-10.6); CHOLESTEROL RISK RATIO 3.96 (<5); CREATININE FOR GFR 1.41 MG/DL (0.70-1.30); GLOMERULAR FILTRATION RATE 52.9 (>42); HDL CHOLESTEROL 31.8 MG/DL (>40); LDL CHOLESTEROL 66.6 MG/DL (<100); NON-HDL-C 94.2 MG/DL; POTASSIUM SERUM 4.2 MMOL/L (3.5-5.1)
== END ==
LOC: M WUC 10:13
PROVIDERS: ATTEND Internal Medicine Cardiovascular Disease
DX: I71.40 Abdominal aortic aneurysm, without rupture, unspecified (principal); I10 Essential (primary) hypertension; E78.49 Other hyperlipidemia

== ENCOUNTER → 2024-06-20 | Outpatient (CLI) | payer MEDICARE | LOC: M RAD 08:53 | PROVIDERS: ATTEND Physician Assistant | DX: I71.43 Infrarenal abdominal aortic aneurysm, without rupture (principal); Z95.828 Presence of other vascular implants and grafts ==

== ENCOUNTER → 2024-09-27 | Outpatient (CLI) | payer MEDICARE | LOC: M RAD 07:38 | PROVIDERS: ATTEND Internal Medicine Pulmonary Disease | DX: Z87.891 Personal history of nicotine dependence (principal) ==

== ENCOUNTER → 2024-12-08 | Outpatient (REF) | payer MEDICARE ==
[~2024-12-08] MED LIST changes: +HYDR12.510 PO; -HYDR12CA PO
[2024-12-08 18:01] LABS: BASO # 0.1 10^3/uL (0.0-0.2); BASO % 1.0 % (0.0-1.0); EOS # 0.3 10^3/uL (0.0-0.5); EOS % 4.3 % (0.0-3.0); LYMPH # 0.9 10^3/uL (1.5-5.0); LYMPH % 13.4 % (24.0-44.0); MONO # 0.7 10^3/uL (0.0-0.8); MONO % 9.3 % (2.0-8.0); NEUTROPHILS # 5.0 10^3/uL (1.5-8.5); NEUTROPHILS % 71.4 % (36.0-66.0); PLATELET COUNT, AUTOMATED 253 10^3/uL (150-450)
[2024-12-08 18:05] LABS: ALT/SGPT 22.0 U/L (7.0-40); AST/SGOT 21.0 U/L (<34); CALCIUM LEVEL 9.2 MG/DL (8.3-10.6); CARBON DIOXIDE LEVEL 26.0 MMOL/L (20-31); CHLORIDE LEVEL 103.0 MMOL/L (98-107); CHOLESTEROL LEVEL 100.0 MG/DL (<200); CHOLESTEROL RISK RATIO 2.78 (<5); CREATININE FOR GFR 1.31 MG/DL (0.70-1.30); GLOMERULAR FILTRATION RATE 58.2 (>42); LDL CHOLESTEROL 51.3 MG/DL (<100); NON-HDL-C 64.1 MG/DL; POTASSIUM SERUM 4.2 MMOL/L (3.5-5.1); SODIUM LEVEL 139.0 MMOL/L (136-145); TRIGLYCERIDES LEVEL 64.0 MG/DL (<150)
== END ==
LOC: M SFHCLERA 08:45
PROVIDERS: ATTEND Family Medicine
DX: Z00.00 Encounter for general adult medical examination without abnormal findings (principal); R73.03 Prediabetes

== ENCOUNTER → 2024-12-19 | Outpatient (CLI) | payer MEDICARE | LOC: M RAD 08:11 | PROVIDERS: ATTEND Physician Assistant | DX: I71.43 Infrarenal abdominal aortic aneurysm, without rupture (principal) ==